=== PATIENT | female | born 1990 | race Caucasian/White ===

== ENCOUNTER 2019-07-02 13:29 | Emergency (ER) | payer MEDICAID, OTHER ==
[~2019-07-02] VITALS: Ht 167.6 cm; Wt 64.5 kg
[~2019-07-02 13:29] MED LIST: DIAZ5TAB PO; HYDR-4383 PO; OXYC-145 PO
[2019-07-02 13:36] VITALS: BP 121/83
--- NOTE | 2019-07-02 13:45 | NUR ---
Kade notified and report filed. Dispatch # [id number]
--- NOTE | 2019-07-02 14:33 | NUR ---
CALLED [facility] AND TALKED WITH ITZ AND SHE SAID THAT THE PT NEEDS TO CALL THEM WHEN SHE IS DONE BEING SEEN BY THE MD. PT HAS BEEN GIVEN THEIR NUMBER AND INFORMED OF THIS. PT HAS HER TWO DAUGHTERS WITH HER AND THEY WILL BE STAYING WITH HER.
[2019-07-02 17:02] LABS: URINE HCG NEGATIVE (NEG)
--- NOTE | 2019-07-02 18:28 | NUR ---
PT CALLED [facility] AND THEY ARE GIVING HER A HOTEL TONIGHT WITH HER DAUGHTERS AT THE [facility]. PT STATES SHE HAS HER OWN CAR HERE.
== END 2019-07-02 18:56 | disposition home or self-care (01) ==
LOC: ER 13:29
DX: S50.11XA Contusion of right forearm, initial encounter (principal); S40.011A Contusion of right shoulder, initial encounter; S00.531A Contusion of lip, initial encounter; S40.021A Contusion of right upper arm, initial encounter; S80.212A Abrasion, left knee, initial encounter; S09.90XA Unspecified injury of head, initial encounter; M54.2 Cervicalgia; E03.9 Hypothyroidism, unspecified; F41.9 Anxiety disorder, unspecified; F32.9 Major depressive disorder, single episode, unspecified; Z90.49 Acquired absence of other specified parts of digestive tract; Z88.5 Allergy status to narcotic agent; Z88.8 Allergy status to other drugs, medicaments and biological substances; Z79.899 Other long term (current) drug therapy; Y04.8XXA Assault by other bodily force, initial encounter; Y93.89 Activity, other specified; Y92.89 Other specified places as the place of occurrence of the external cause; Y99.8 Other external cause status
CPT/HCPCS: 70450; 73110; 73130; 81025; 99284